=== PATIENT | female | born 1995 | race Two or more races ===

== ENCOUNTER 2025-03-31 07:52 | Emergency (ER) | payer BC ==
[~2025-03-31] VITALS: Ht 152.4 cm; Wt 49.9 kg
[2025-03-31] MEDS: IV NS 0.9% 1,000 ML BAG IV ONE (08:25)
[2025-03-31] MEDS ORDERED: KETOROLAC TROMETHAMINE 15 MG/ML VIAL ONE (08:26)
[2025-03-31] MEDS ORDERED: ACETAMINOPHEN 325 MG TABLET ONE (08:27)
[2025-03-31] MEDS: ACETAMINOPHEN 325 MG TABLET PO ONE (08:28)
[2025-03-31] MEDS: KETOROLAC TROMETHAMINE 15 MG/ML VIAL IV ONE (08:28)
[2025-03-31] MEDS ORDERED: IBUP-1955 PO (08:58)
[2025-03-31] MEDS ORDERED: DICL500C PO (08:58)
--- NOTE | 2025-03-31 09:09 | NUR ---
Pt states "Feel better" Afebrile. VSS Patient discharged to home in stable condition. Written and verbal after care instructions given. Patient verbalizes understanding of instruction.
[2025-03-31 09:11] VITALS: BP 106/63; TEMP 217.4; O2SAT 98
== END 2025-03-31 09:13 | disposition home or self-care (01) ==
LOC: ER 08:06
DX: N61.0 Mastitis without abscess (principal)
CPT/HCPCS: 99283; 96374; J1885; J7030